=== PATIENT | female | born 1950 | race Caucasian/White ===

== ENCOUNTER 2025-04-15 11:34 | Outpatient (CLI) | payer MEDICARE | END 2025-04-15 11:35 | disposition home or self-care (01) | LOC: CSHLAB 11:34 | PROVIDERS: ATTEND Surgery | DX: Z01.818 Encounter for other preprocedural examination (principal); R94.31 Abnormal electrocardiogram [ECG] [EKG]; C85.81 Other specified types of non-Hodgkin lymphoma, lymph nodes of head, face, and neck | CPT/HCPCS: 85025; 86704; 86706; 86803; 87340; 93005; 93010 ==

== ENCOUNTER 2025-06-15 13:32 | Outpatient (CLI) | payer MEDICARE | END 2025-06-15 13:33 | disposition home or self-care (01) | LOC: CSHULT 13:32 | PROVIDERS: ATTEND Internal Medicine Hematology & Oncology | DX: C85.81 Other specified types of non-Hodgkin lymphoma, lymph nodes of head, face, and neck (principal); C83.11 Mantle cell lymphoma, lymph nodes of head, face, and neck | CPT/HCPCS: 80053; 85025; 93306 ==